=== PATIENT | female | born 1985 | race Caucasian/White ===

== ENCOUNTER 2017-10-13 20:03 | Emergency (ER) | payer OTHER ==
[~2017-10-13] VITALS: Ht 175.3 cm; Wt 86.2 kg
[2017-10-13 22:25] VITALS: BP 117/65
== END 2017-10-13 22:21 | disposition home or self-care (01) ==
LOC: ER 20:11
DX: M79.662 Pain in left lower leg (principal); M79.89 Other specified soft tissue disorders; J45.909 Unspecified asthma, uncomplicated; G43.909 Migraine, unspecified, not intractable, without status migrainosus; F32.9 Major depressive disorder, single episode, unspecified; Z88.6 Allergy status to analgesic agent
CPT/HCPCS: 93971-TC; A4606; Z7610